=== PATIENT | female | born 1955 | race Asian ===

== ENCOUNTER 2016-12-23 08:48 | Outpatient (CLI) | payer BC ==
[~2016-12-23 08:48] MED LIST: ALLO100T22 PO; ATEN50TA36 PO; ATENOL/CHLOR1 TA1 PO; BENA20TA2 PO; COLC0.6T6 PO; DOCU SOFT100 MG OR; FLEXERIL10 MG PO; LOTENSIN HCT1 TAB PO; NEURONTIN600 MG PO; NORVASC10 MG PO; SOMA350 MG PO; TENORETIC50 MG PO
== END 2016-12-23 09:50 | disposition home or self-care (01) ==
LOC: RAD 08:48
DX: M25.512 Pain in left shoulder (principal)

== ENCOUNTER 2017-09-15 13:34 | Inpatient (IN) | payer BC ==
[~2017-09-15] VITALS: Ht 167.6 cm; Wt 84.9 kg
[2017-09-15] MEDS ORDERED: ALLO300T23 PO (14:16)
[2017-09-15] MEDS ORDERED: AMOXICILLIN250 M2 PO (14:17)
[2017-09-15] MEDS ORDERED: PRED20TA27 PO (14:18)
[2017-09-15] MEDS ORDERED: ACET-689 PO (14:20)
[2017-09-15 14:55] VITALS: BP 123/75; TEMP 97.7; Ht 167.6 cm; Wt 84.9 kg
[2017-09-15 15:55] LABS: PLATELET COUNT 173 K/uL (152-353)
[2017-09-15 16:00] VITALS: BP 126/76; TEMP 97
[2017-09-15 20:08] VITALS: BP 115/87; TEMP 97.5
[2017-09-16 00:09] VITALS: BP 115/78; TEMP 97.9
[2017-09-16 04:04] VITALS: BP 121/79; TEMP 98
[2017-09-16 06:02] LABS: PLATELET COUNT 153 K/uL (152-353)
[2017-09-16 08:00] VITALS: BP 107/69; TEMP 98.1
[2017-09-16 11:48] VITALS: BP 105/65; TEMP 97.6
[2017-09-16 16:00] VITALS: BP 111/72; TEMP 98.2
[2017-09-16 19:47] VITALS: BP 113/70; TEMP 98
[2017-09-17 00:03] VITALS: BP 104/65; TEMP 97.7
[2017-09-17 04:00] VITALS: BP 105/67; TEMP 97.9
[2017-09-17 08:00] VITALS: BP 101/65; TEMP 97.8
[2017-09-17 08:02] LABS: PLATELET COUNT 158 K/uL (152-353)
[2017-09-17 08:33] LABS: POTASSIUM 3.8 mmol/L (3.6-5.2)
[2017-09-17 12:00] VITALS: BP 107/54; TEMP 97.6
[2017-09-17 16:00] VITALS: BP 100/62; TEMP 97.6
[2017-09-17 20:00] VITALS: BP 114/73; TEMP 97.3
[2017-09-18 04:00] VITALS: BP 114/71; TEMP 98.1
[2017-09-18 09:04] VITALS: BP 123/77; TEMP 97.5
[2017-09-18 10:07] LABS: POTASSIUM 3.2 mmol/L (3.6-5.2)
[2017-09-18 11:55] VITALS: BP 104/59; TEMP 97.6
[2017-09-18 16:34] VITALS: BP 118/70; TEMP 97.7
[2017-09-18 20:00] VITALS: BP 93/64; TEMP 98.1
[2017-09-18 23:53] VITALS: BP 105/67; TEMP 97.8
[2017-09-19 04:00] VITALS: BP 100/61; TEMP 97.8
[2017-09-19 06:49] LABS: PLATELET COUNT 167 K/uL (152-353)
[2017-09-19 07:06] LABS: POTASSIUM 3.1 mmol/L (3.6-5.2)
[2017-09-19 08:00] VITALS: BP 107/65; TEMP 97.8
[2017-09-19 12:00] VITALS: BP 100/57; TEMP 98.5
[2017-09-19 16:00] VITALS: BP 107/65; TEMP 97.8
[2017-09-19 20:00] VITALS: BP 127/58; TEMP 97.9
[2017-09-20] VITALS: BP 103/63; TEMP 97.7
[2017-09-20 04:00] VITALS: BP 116/76; TEMP 97.8
[2017-09-20 08:00] VITALS: BP 97/58; TEMP 97.8
[2017-09-20 12:00] VITALS: BP 108/68; TEMP 98
== END 2017-09-20 15:20 | disposition short-term general hospital (02) | DRG 291 ==
LOC: MED/SURG 13:34
DX: I13.0 Hypertensive heart and chronic kidney disease with heart failure and stage 1 through stage 4 chronic kidney disease, or unspecified chronic kidney disease (principal); I50.41 Acute combined systolic (congestive) and diastolic (congestive) heart failure; N17.8 Other acute kidney failure; N18.3 Chronic kidney disease, stage 3 (moderate); M48.00 Spinal stenosis, site unspecified
CPT/HCPCS: 36415; 80048; 80053; 80061; 81000; 82550; 82570; 82948; 83880; 84300; 84443; 84484; 85027; 85379; 85651; 86039; 86140; 87040; 93005; 94640; 94664; 94760; 96372; J0696; J1644; J1940; J2930

== ENCOUNTER 2017-09-20 15:27 | Outpatient (CLI) | payer BC ==
[~2017-09-20 15:27] MED LIST changes: +ACET-689 PO; +ALLO300T23 PO; +AMOXICILLIN250 M2 PO; +PRED20TA27 PO
== END 2017-09-20 16:46 | disposition short-term general hospital (02) ==
LOC: AMB 15:27
DX: I13.0 Hypertensive heart and chronic kidney disease with heart failure and stage 1 through stage 4 chronic kidney disease, or unspecified chronic kidney disease (principal); I50.41 Acute combined systolic (congestive) and diastolic (congestive) heart failure; N17.8 Other acute kidney failure; N18.3 Chronic kidney disease, stage 3 (moderate); M48.00 Spinal stenosis, site unspecified
CPT/HCPCS: A0425; A0429

== ENCOUNTER 2018-06-12 07:46 | Outpatient (CLI) | payer BC | END 2018-06-12 19:38 | disposition home or self-care (01) | LOC: RESP 07:46 | DX: I10 Essential (primary) hypertension (principal) | CPT/HCPCS: 93306 ==

== ENCOUNTER 2018-06-20 10:51 | Outpatient (CLI) | payer BC | END 2018-06-20 23:59 | disposition home or self-care (01) | LOC: LABW 10:51 | PROVIDERS: Internal Medicine Cardiovascular Disease | DX: Z79.899 Other long term (current) drug therapy (principal); I50.9 Heart failure, unspecified | CPT/HCPCS: 36415; 80048; 83880 ==

== ENCOUNTER 2018-06-26 07:26 | Emergency (ER) | payer BC ==
[~2018-06-26] VITALS: Ht 167.6 cm; Wt 68.9 kg
[2018-06-26 07:40] VITALS: TEMP 97
[2018-06-26 08:54] LABS: PLATELET COUNT 187 K/uL (152-353)
[2018-06-26 08:59] LABS: POTASSIUM 3.5 mmol/L (3.6-5.2)
[2018-06-26 09:49] VITALS: BP 110/77
== END 2018-06-26 09:49 | disposition home or self-care (01) ==
LOC: ED 07:26
PROVIDERS: Family Medicine
DX: S29.012A Strain of muscle and tendon of back wall of thorax, initial encounter (principal); X50.0XXA Overexertion from strenuous movement or load, initial encounter
CPT/HCPCS: 36415; 80053; 81000; 85027; 99283

== ENCOUNTER 2018-07-01 07:17 | Emergency (ER) | payer BC ==
[~2018-07-01] VITALS: Ht 167.6 cm; Wt 61.2 kg
[2018-07-01 08:42] LABS: PLATELET COUNT 183 K/uL (152-353)
[2018-07-01 09:04] LABS: POTASSIUM 2.7 mmol/L (3.6-5.2)
[2018-07-01 15:15] VITALS: BP 95/72; TEMP 98.1
== END 2018-07-01 15:15 | disposition short-term general hospital (02) ==
LOC: ED 07:17
PROVIDERS: Family Medicine
DX: R07.89 Other chest pain (principal); R79.89 Other specified abnormal findings of blood chemistry; I48.91 Unspecified atrial fibrillation
CPT/HCPCS: 36415; 80053; 82150; 82550; 82553; 83690; 83880; 84443; 84484; 85027; 85379; 93005; 96374; 96375; 96376; 99284; J2270; J2405; J3490

== ENCOUNTER 2018-07-01 15:22 | Outpatient (CLI) | payer BC | END 2018-07-01 16:27 | disposition short-term general hospital (02) | LOC: AMB 15:22 | DX: R07.89 Other chest pain (principal); R79.89 Other specified abnormal findings of blood chemistry; I48.91 Unspecified atrial fibrillation | CPT/HCPCS: A0425; A0429 ==

== ENCOUNTER 2018-07-09 10:03 | Outpatient (CLI) | payer BC | END 2018-07-09 10:13 | disposition short-term general hospital (02) | LOC: AMB 10:03 | DX: I21.9 Acute myocardial infarction, unspecified (principal) | CPT/HCPCS: A0425; A0433 ==

== ENCOUNTER 2018-07-09 10:14 | Emergency (ER) | payer BC ==
[~2018-07-09] VITALS: Ht 167.6 cm; Wt 61.2 kg
== END 2018-07-09 14:34 | disposition expired ==
LOC: ED 10:17
DX: I21.9 Acute myocardial infarction, unspecified (principal)